=== PATIENT | female | born 1985 | race Asian ===

== ENCOUNTER 2016-07-31 21:00 | Inpatient (IN) | payer SELFPAY ==
[~2016-07-31] VITALS: Ht 165.1 cm; Wt 71.7 kg
[2016-07-31] MEDS: LR 1,000 ML IV SCH (21:40)
[2016-07-31] MEDS ORDERED: OXYTOCIN/NORMAL SALINE 1,000 ML IV SCH (21:52)
[2016-07-31] MEDS ORDERED: NALBUPHINE HCL 10 MG/ML AMP IVP PRN (22:00)
[2016-07-31] MEDS ORDERED: TERBUTALINE SULFATE 1 MG/ML VIAL SUBCUT ONE (22:00)
[2016-07-31 22:24] LABS: BASOPHILS % (AUTO) 0.2 % (0.0-2.0); EOSINOPHILS % (AUTO) 0.4 % (0.0-4.0); HEMATOCRIT 37.1 % (36-48); HEMOGLOBIN 12.7 g/dL (12.0-16.0); LYMPHOCYTES # (AUTO) 1.7 K/uL (1.0-5.5); LYMPHOCYTES % (AUTO) 14.1 % (20.5-51.5); MEAN CORPUSCULAR HEMOGLOBIN 31 pg (27-31); MEAN CORPUSCULAR HGB CONC 34 % (32-36); MEAN CORPUSCULAR VOLUME 90 fL (79.0-98.0); MONOCYTES # (AUTO) 0.6 K/uL (0.0-1.0); MONOCYTES % (AUTO) 5.3 % (1.7-9.3); NEUTROPHILS # (AUTO) 9.5 K/uL (1.8-7.7); PLATELET COUNT (AUTO) 137 K/uL (130-430); RED BLOOD CELL COUNT(AUTO) 4.12 MIL/uL (4.2-6.2); RED CELL DISTRIBUTION WIDTH 16.3 % (9.0-15.0); WHITE BLOOD COUNT (AUTO) 11.8 K/uL (4.8-10.8)
[2016-07-31 23:16] VITALS: BP 113/72; RESP 20; TEMP 97.9
[2016-08-01] MEDS: LR 1,000 ML IV SCH (01:00)
[2016-08-01] MEDS ORDERED: OXYTOCIN/NORMAL SALINE 1,000 ML IV SCH (01:43)
[2016-08-01] MEDS ORDERED: OXYTOCIN/NORMAL SALINE 1,000 ML IV ONE (01:43)
[2016-08-01] MEDS ORDERED: METHYLERGONOVINE MALEATE 0.2 MG TABLET PO PRN (01:45)
[2016-08-01] MEDS ORDERED: DOCUSATE SODIUM 100 MG CAPSULE PO PRN (01:45)
[2016-08-01] MEDS ORDERED: DERMOPLAST SPRAY TP PRN (01:45)
[2016-08-01] MEDS ORDERED: HYDROCORTISONE 0.5%, 28.35 GM TOPICAL CREAM TP PRN (01:45)
[2016-08-01] MEDS ORDERED: LANOLIN 7 GM OINT. TP PRN (01:45)
[2016-08-01] MEDS ORDERED: ANUSOL 1 EA SUPP.RECT (PREPARATION H) RC PRN (01:45)
[2016-08-01] MEDS ORDERED: MEASLES,MUMPS&RUBELLA VACC/PF 12500 UNIT/0.5 ML VIAL SUBQ PRN (01:45)
[2016-08-01] MEDS ORDERED: SENNOSIDES/DOCUSATE SODIUM 1 TAB TABLET(SENOKOT-S) PO PRN (01:45)
[2016-08-01] MEDS ORDERED: METHYLERGONOVINE MALEATE 0.2 MG/ML AMP IM ONE (03:15)
[2016-08-01] MEDS ORDERED: DIPH-TET-PERTUS Vaccine 0.5 ML VIAL (ADACEL) I.M. ONE (04:00)
[2016-08-01] MEDS ORDERED: OXYCODONE/ACETAMINOPHEN 5-325 TABLET PO PRN ×2 (05:00)
[2016-08-01] MEDS: IBUPROFEN 800 MG TABLET PO PRN ×3 (06:15→17:58)
[2016-08-02] MEDS ORDERED: HYDROCORTISONE 0.5%, 28.35 GM TOPICAL CREAM TP ONE (06:52)
[2016-08-02] MEDS ORDERED: LIDOCAINE PF 1% 30ML(POUR BTL) INJ ONE (06:52)
[2016-08-02] MEDS ORDERED: DIPH-TET-PERTUS Vaccine 0.5 ML VIAL (ADACEL) I.M. ONE (07:15)
[2016-08-02 07:58] LABS: HEMATOCRIT 33.2 % (36-48); HEMOGLOBIN 11.1 g/dL (12.0-16.0)
== END 2016-08-02 15:20 | disposition home or self-care (01) | DRG 775 ==
LOC: SPU 21:00
PROVIDERS: ADMIT Obstetrics & Gynecology; ATTEND Obstetrics & Gynecology
PROC: 10E0XZZ Delivery of Products of Conception, External Approach (ICD-10-PCS; principal; 2016-07-31)
PROC: 0KQM0ZZ Repair Perineum Muscle, Open Approach (ICD-10-PCS; 2016-07-31)
DX: O69.1XX0 Labor and delivery complicated by cord around neck, with compression, not applicable or unspecified (principal); Z37.0 Single live birth; O70.1 Second degree perineal laceration during delivery; Z3A.39 39 weeks gestation of pregnancy
CPT/HCPCS: 36415; 81002-TC; 85018-TC; 85025; 86592; 86886; 86900; 86901; 90715; J2001; J2590; J7120